=== PATIENT | male | born 2000 | race Caucasian/White ===

== ENCOUNTER 2021-10-03 15:27 | Inpatient (IN) | payer SELFPAY ==
[~2021-10-03] VITALS: Ht 182.9 cm; Wt 115.0 kg
[2021-10-03] MEDS ORDERED: SODIUM CHLORIDE 0.9% 1,000 ML IV ONE ×2 (15:45→16:45)
[2021-10-03 16:22] LABS: MEAN CORPUSCULAR HEMOGLOBIN 29.1 pg (28.0-32.0); MEAN CORPUSCULAR VOLUME 99.3 fL (80.0-94.0); MEAN PLATELET VOLUME 11.5 fl (7.4-10.4); PLATELET 345 x1000/uL (130-400); RED BLOOD CELL COUNT 6.26 mill/uL (4.7-6.1); RED CELL DISTRIBUTION WIDTH 16.2 % (11.6-14.6)
[2021-10-03 16:23] LABS: CHLORIDE 108 mEq/L (98-107)
[2021-10-03 16:27] LABS: ETHANOL BLOOD < 10 mg/dL
[2021-10-03 16:35] LABS: HEMATOCRIT. 62.2 % (42.0-52.0)
[2021-10-03 16:36] LABS: HEMOGLOBIN. 18.2 g/dL (14.0-18.0)
[2021-10-03] MEDS ORDERED: INSULIN REGULAR 100U/100ML PMX 100 ML IV NR ×2 (16:45)
[2021-10-03] MEDS ORDERED: POTASSIUM CHLORIDE 20MEQ/PACKET PO NR (16:45)
[2021-10-03] MEDS ORDERED: SODIUM CHLORIDE 0.9% 1,000 ML IV NR (17:00)
[2021-10-03] MEDS ORDERED: KCL 20MEQ/100ML PREMIX 100 ML IV NR (17:00)
[2021-10-03] MEDS ORDERED: LACTATED RINGERS 1,000 ML IV SCH (17:30)
[2021-10-03 19:03] LABS: PHOSPHORUS 4.2 mg/dL (2.5-4.9)
[2021-10-03 19:12] LABS: PLATELET ESTIMATE NORMAL
[2021-10-03] MEDS ORDERED: POTASSIUM CHLORIDE INJ 40 MEQ in DEXT 5% WATER 250 ML IV ONE (19:30)
[2021-10-03] MEDS ORDERED: DEXT 5%/0.45% NACL KCL 40MEQ/L 1,000 ML IV ONE (19:45)
[2021-10-03] MEDS ORDERED: LORAZEPAM 2MG/ML CPJ IV ONE (19:45)
[2021-10-03] MEDS: KCL 20MEQ/100ML X 2 FOR TOTAL KCL 40MEQ/200ML IV SCH ×2 (21:00→23:00)
[2021-10-03] MEDS ORDERED: POTASSIUM CHLORIDE INJ 40 MEQ in SODIUM CHLORIDE 0.45% 1,000 ML IV SCH (21:15)
[2021-10-03 21:21] LABS: PHOSPHORUS 3.3 mg/dL (2.5-4.9)
[2021-10-03] MEDS ORDERED: INSULIN REGULAR 100U/100ML PMX 100 ML IV SCH (22:45)
[2021-10-03] MEDS ORDERED: DEXTROSE 50% WATER 50ML SYRINGE IV PRN ×2 (22:45)
[2021-10-03] MEDS ORDERED: BLOOD SUGAR DIAGNOSTIC STRIP TEST SCH (22:45)
[2021-10-03] MEDS ORDERED: ONDANSETRON HCL 4MG/2ML INJ IV PRN (22:45)
[2021-10-03] MEDS ORDERED: PIPERACILLIN/TAZ 3.375G PREMIX 50 ML IV NR (23:00)
[2021-10-03 23:11] LABS: PHOSPHORUS 2.4 mg/dL (2.5-4.9)
[2021-10-03 23:13] LABS: BG BASE EXCESS -18.4 mmol/L (-2.0-2.0); BG CARBOXYHEMOGLOBIN 0.3 % (0.5-1.5); BG DEOXYHEMOGLOBIN 2.6 % (0.0-5.0); BG FRACTION INSPIRED OXYGEN 21; BG HCO3 ACT 6.6 mmol/L (22.0-26.0); BG METHEMOGLOBIN 0.7 % (0.0-1.5); BG OXYGEN SATURATION 97.4 % (92.0-98.5); BG OXYHEMOGLOBIN 96.4 % (94.0-97.0); BG PH 7.204 (7.350-7.450); BG PO2 108.3 mmHg (75.0-100.0); BG SAMPLE SITE RIGHT RADIAL; BG TOTAL HEMOGLOBIN 19.2 g/dL (12.0-18.0); BG VENT MODE ROOM AIR
[2021-10-03] MEDS ORDERED: SODIUM BICARBONATE 150 MEQ in SODIUM CHLORIDE 0.45% 1,000 ML IV SCH ×4 (23:59)
[2021-10-04 00:28] LABS: PHOSPHORUS 1.8 mg/dL (2.5-4.9)
[2021-10-04] MEDS ORDERED: MIDAZOLAM HCL 100 MG in DEXT 5% WATER 80 ML IV ONE (02:00)
[2021-10-04] MEDS ORDERED: POTASSIUM CHLORIDE INJ 40 MEQ in DEXT 5% WATER 250 ML IV ONE ×5 (02:00→02:30)
[2021-10-04] MEDS ORDERED: SODIUM CHLORIDE 0.45% 1,000 ML IV ONE (02:30)
[2021-10-04] MEDS ORDERED: POTASSIUM PHOS,M-BASIC-D-BASIC 30 MMOL in SODIUM CHLORIDE 0.9% 500 ML IV ONE (02:30)
[2021-10-04] MEDS ORDERED: NOREPINEPHRINE 8MG/250ML PMX 250 ML IV ONE (03:15)
[2021-10-04] MEDS ORDERED: VASOPRESSIN 20 UNIT in SODIUM CHLORIDE 0.9% 99 ML ONE (03:15)
[2021-10-04] MEDS ORDERED: ACETAMINOPHEN WITH CODEINE 300/30MG TABLET PO ONE (03:15)
[2021-10-04 03:22] LABS: BG BASE EXCESS -25.1 mmol/L (-2.0-2.0); BG CARBOXYHEMOGLOBIN 0.6 % (0.5-1.5); BG DEOXYHEMOGLOBIN 56.2 % (0.0-5.0); BG FRACTION INSPIRED OXYGEN 100; BG HCO3 ACT 8.1 mmol/L (22.0-26.0); BG METHEMOGLOBIN 0.1 % (0.0-1.5); BG OXYGEN SATURATION 43.4 % (92.0-98.5); BG OXYHEMOGLOBIN 43.1 % (94.0-97.0); BG PCO2 46.3 mmHg (35.0-45.0); BG PH 6.859 (7.350-7.450); BG PO2 36.3 mmHg (75.0-100.0); BG SAMPLE SITE CL; BG VENT MODE VENT - AC
[2021-10-04] MEDS ORDERED: VASOPRESSIN 20 UNIT in SODIUM CHLORIDE 0.9% 99 ML IV NR (03:30)
[2021-10-04] MEDS ORDERED: SODIUM CHLORIDE 0.9% 1,000 ML IV ONE (04:00)
[2021-10-04 04:26] VITALS: BP 29/15
[2021-10-04] MEDS ORDERED: PIPERACILLIN/TAZOBACTAM 3.375 G in DEXTROSE 5% WATER 50 ML IV SCH (06:00)
[2021-10-04] MEDS ORDERED: PIPERACILLIN/TAZOBACTAM 3.375G in DEXT 5% WATER 50ML IV SCH (06:00)
[2021-10-04] MEDS ORDERED: SUCCINYLCHOLINE CHLORIDE 200MG/10ML IV ONE (08:06)
[2021-10-04] MEDS ORDERED: AMIODARONE HCL 50MG/ML 3ML VIAL IV ONE (08:06)
[2021-10-04] MEDS ORDERED: CALCIUM CHLORIDE 1GM/10ML SYR IV ONE (08:06)
[2021-10-04] MEDS ORDERED: ADENOSINE 3 MG/ML 2ML VIAL IV ONE (08:06)
[2021-10-04] MEDS ORDERED: EPINEPHRINE 0.1MG/ML (1:10,000) 10ML SYR ONE (08:06)
[2021-10-04] MEDS ORDERED: SODIUM BICARBONATE 8.4% 1 MEQ/ML 50ML SYR IV ONE (08:06)
[2021-10-04] MEDS ORDERED: FAMOTIDINE 20MG/2ML VIAL IV SCH (09:00)
[2021-10-06] MEDS ORDERED: SODIUM BICARBONATE 150 MEQ in SODIUM CHLORIDE 0.45% 1,000 ML IV SCH (05:25)
== END 2021-10-04 04:42 | DRG 420 ==
LOC: ER 15:27 → MICUSO 19:26 → EDBEDREQ 19:37 → EDBEDREQTM 19:37
PROVIDERS: ADMIT Family Medicine; ATTEND Family Medicine
PROC: 06HY33Z Insertion of Infusion Device into Lower Vein, Percutaneous Approach (ICD-10-PCS; principal; 2021-10-03)
PROC: B54BZZA Ultrasonography of Right Lower Extremity Veins, Guidance (ICD-10-PCS; 2021-10-03)
PROC: 5A12012 Performance of Cardiac Output, Single, Manual (ICD-10-PCS; 2021-10-04)
PROC: 5A1935Z Respiratory Ventilation, Less than 24 Consecutive Hours (ICD-10-PCS; 2021-10-04)
PROC: 0BH17EZ Insertion of Endotracheal Airway into Trachea, Via Natural or Artificial Opening (ICD-10-PCS; 2021-10-04)
DX: E11.10 Type 2 diabetes mellitus with ketoacidosis without coma (principal); I46.9 Cardiac arrest, cause unspecified; N17.9 Acute kidney failure, unspecified; I10 Essential (primary) hypertension; I49.01 Ventricular fibrillation; Z20.822 Contact with and (suspected) exposure to COVID-19; Z79.899 Other long term (current) drug therapy
CPT/HCPCS: 36415; 36600; 71045; 80048; 80053; 80307; 80320; 80329; 82010; 82375; 82805; 82962; 83036; 83605; 83735; 84100; 84443; 84484; 85025; 87426; 93005; 99291; J0153; J0282; J0330; J1815; J2060; J2250; J2543; J3480; J3490; J7030; J7040; J7050; J7060; A4315; G0480